=== PATIENT | male | born 2000 | race Caucasian/White ===

== ENCOUNTER 2023-12-07 06:10 | Day surgery (SDC) | payer OTHER ==
[2023-12-06 14:51] VITALS: BMI 23.1
[2023-12-07] MEDS ORDERED: Lidocaine 1% PF 5 ML VIAL ONE (06:44)
[2023-12-07] MEDS ORDERED: PROPOFOL 20 ML ONE ×2 (06:45→06:47)
[2023-12-07] MEDS ORDERED: Midazolam HCl 2 mg/2 ml Vial ONE (06:45)
[2023-12-07] MEDS ORDERED: fentaNYL PF 100 MCG/2 ML SYRINGE ONE ×2 (06:45→07:35)
[2023-12-07] MEDS ORDERED: Bupivacaine PF 0.5% 30 ML VIAL ONE (07:03)
[2023-12-07] MEDS ORDERED: EPINEPHrine 1 MG/ML VIAL ONE (07:03)
[2023-12-07] MEDS ORDERED: CEFAZOLIN 2 GM VIAL ONE (07:14)
[2023-12-07] MEDS ORDERED: ePHEDrine Sulfate 50 MG/10 ML VIAL ONE (07:44)
[2023-12-07] MEDS ORDERED: Zolpidem Tartrate 5 MG TAB PO PRN (07:45)
[2023-12-07] MEDS ORDERED: Ondansetron PF 4 MG/2 ML Vial IVP PRN (07:45)
[2023-12-07] MEDS ORDERED: Promethazine HCl 25 MG/ML VIAL IM PRN (07:45)
[2023-12-07] MEDS ORDERED: Ropivacaine 0.2% 550 ML 550 ML NERVE BLCK SCH (07:45)
[2023-12-07] MEDS ORDERED: traMADol HCl 50 MG TAB PO PRN ×2 (07:45)
[2023-12-07] MEDS ORDERED: fentaNYL 50 mcg/mL 1 mL Vial SLOW IVP PRN (07:45)
[2023-12-07] MEDS ORDERED: HYDROcodone/Acetaminophen 10/325 mg Tablet PO PRN ×2 (07:45)
[2023-12-07] MEDS ORDERED: diphenhydrAMINE 50 MG/ML VIAL ONE (07:57)
[2023-12-07] MEDS ORDERED: Ropivacaine 0.5% HCl/PF (150 MG/30 ML VIAL) ONE (07:57)
[2023-12-07] MEDS ORDERED: Dexamethasone 20 MG/5 ML VIAL ONE (07:57)
[2023-12-07] MEDS ORDERED: Meperidine HCl/PF 25 MG (1 mL) VIAL ONE (08:30)
[2023-12-07] MEDS ORDERED: Ketorolac Tromethamine 30 MG (1 mL) VIAL IVP SCH (12:00)
== END 2023-12-07 11:45 | disposition home or self-care (01) ==
LOC: SDC 06:10
PROVIDERS: ATTEND Orthopaedic Surgery
PROC: 0SBC4ZZ Excision of Right Knee Joint, Percutaneous Endoscopic Approach (ICD-10-PCS; principal; 2023-12-07)
PROC: 3E0T3BZ Introduction of Anesthetic Agent into Peripheral Nerves and Plexi, Percutaneous Approach (ICD-10-PCS; principal; 2023-12-07)
DX: M23.91 Unspecified internal derangement of right knee (principal); T84.84XA Pain due to internal orthopedic prosthetic devices, implants and grafts, initial encounter; Y83.1 Surgical operation with implant of artificial internal device as the cause of abnormal reaction of the patient, or of later complication, without mention of misadventure at the time of the procedure
CPT/HCPCS: A4306; J0171; J0665; J1100; J1200; J2175; J2250; J2704; J2795